=== PATIENT | male | born 1960 | race Caucasian/White ===

== ENCOUNTER 2022-04-11 18:38 | Emergency (ER) | payer SELFPAY ==
[2022-04-11] MEDS ORDERED: Ketorolac Tromethamine 60 MG/2 ML VIAL ONE (19:05)
[2022-04-11] MEDS ORDERED: traMADol HCl 50 MG TAB ONE (19:09)
== END 2022-04-11 19:27 | disposition home or self-care (01) ==
LOC: NAV ERS 18:38
DX: S16.1XXA Strain of muscle, fascia and tendon at neck level, initial encounter (principal); I10 Essential (primary) hypertension; Z87.891 Personal history of nicotine dependence; X58.XXXA Exposure to other specified factors, initial encounter
CPT/HCPCS: 96372; 99282; J1885